=== PATIENT | female | born 2000 | race African-American/Black ===

== ENCOUNTER 2019-02-16 20:35 | Emergency (ER) | payer SELFPAY ==
[2019-02-16] MEDS ORDERED: DIAZEPAM INJ 10 MG/2 ML DISP.SYRIN IM ONE (22:33)
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
--- NOTE | 2019-02-16 23:20 | RADIOLOGY REPORT (SQ) ---
CLINICAL HISTORY: head/neck injury, pain COMPARISON: None. TECHNIQUE: CT CERVICAL SPINE WITHOUT IV CONTRAST on 02/16/2019 10:32 PM CDT This exam was performed according to our departmental dose-optimization program, which includes automated exposure control, adjustment of the mA and/or kV according to patient size and/or use of iterative reconstruction technique. FINDINGS: There is no acute fracture. Alignment is anatomic. Disc spaces are maintained. Vertebral body heights are preserved. Soft tissues are unremarkable. IMPRESSION: No acute fracture or subluxation.
[2019-02-16 23:53] VITALS: BP 134/85
== END 2019-02-17 00:15 | disposition home or self-care (01) ==
LOC: ER 20:35
DX: S19.9XXA Unspecified injury of neck, initial encounter (principal); S09.90XA Unspecified injury of head, initial encounter; M62.838 Other muscle spasm; M54.2 Cervicalgia; Y08.89XA Assault by other specified means, initial encounter
CPT/HCPCS: 99283; 96372; 72125; J3360